=== PATIENT | female | born 1940 | race Caucasian/White ===

== ENCOUNTER → 2023-10-23 08:46 | Outpatient (REF) | payer OTHER, SELFPAY | LOC: RAD 08:46 | PROVIDERS: ATTENDING PHYSICIAN Physician Assistant Medical | DX: J18.9 Pneumonia, unspecified organism (principal) | CPT/HCPCS: 71046 ==

== ENCOUNTER → 2023-12-12 07:52 | Outpatient (REF) | payer OTHER, SELFPAY | LOC: RAD 07:52 | PROVIDERS: ATTENDING PHYSICIAN Physician Assistant; FAMILY PHYSICIAN Physician Assistant Medical | DX: I71.40 Abdominal aortic aneurysm, without rupture, unspecified (principal) | CPT/HCPCS: 76770 ==

== ENCOUNTER → 2024-07-02 08:12 | Outpatient (REF) | payer OTHER, SELFPAY | LOC: DHVS 08:12 | PROVIDERS: ATTENDING PHYSICIAN Surgery Vascular Surgery; FAMILY PHYSICIAN Physician Assistant Medical | DX: I71.40 Abdominal aortic aneurysm, without rupture, unspecified (principal) | CPT/HCPCS: 76770 ==

== ENCOUNTER → 2025-04-18 06:56 | Outpatient (REF) | payer MEDICARE, SELFPAY | LOC: PAVMRI 06:56 | PROVIDERS: ATTENDING PHYSICIAN Physician Assistant Surgical; PRIMARYCARE PHYSICIAN Physician Assistant Medical | DX: M48.07 Spinal stenosis, lumbosacral region (principal); M54.50 Low back pain, unspecified; Z98.1 Arthrodesis status | CPT/HCPCS: 72148 ==